=== PATIENT | female | born 1980 | race Caucasian/White ===

== ENCOUNTER → 2018-09-19 | Day surgery (SDC) | payer OTHER ==
[2018-09-19] VITALS (11 sets, daily range): BP systolic 105–122; BP diastolic 63–75
[~2018-09-19] VITALS: Ht 172.7 cm; Wt 68.0 kg
[~2018-09-19] MED LIST: Bupivacaine 0.5% Inj 30 ml vial INJ ONE; Bupivacaine w/Epi 0.25% 30ml Vial INJ ONE; D5 1/2NS 1,000 ML IV SCH; Duramorph PF 10mg/10ml amp EPIDUR ONE; HYDROmorphone 1mg/ml Carpuject SUBQ PRN; Kenalog-40 1ml Vial ONE; Ketorolac 30mg Inj ONE; LR 1000ml ONE; Lidocaine 1% 10mg/ml/Epi 0.005mg/ml 30ml vial INJ ONE; Lidocaine 1% MPF 10mg/ml 5ml ONE; MULTIVITAMINS1 EA11 ORAL; Metoclopramide 10mg/2ml Inj IVP PRN; Morphine Sulfate PF 10 ML ONE; NS Irrig 4000ml IRRIG ONE; Norco 5mg/325mg tab ORAL PRN; Propofol 200mg/20ml IV ONE; Tylenol #3 tab (300mg/30mg) ORAL PRN; ceFAZolin 1gm IVPB IVPB ONE; celeBREX 200mg Cap **SURGERY PATIENTS ONLY ORAL ONE; fentaNYL 100 mcg/2 mL IV PRN; oxyCONTIN 20mg tab ORAL ONE
--- NOTE | 2018-09-19 06:59 | Pre-Procedure Note/Attestation ---
Pre-Procedure Note/Attestation Complete Prior to Procedure Planned Procedure: right Procedure Narrative: knee arthroscopy, possible synovectomy, possible chondroplasty, possible menisectomy Indications for Procedure Pre-Operative Diagnosis: right knee internal derangement Attestation I attest that I discussed the nature of the procedure; its benefits; risks and complications; and alternatives (and the risks and benefits of such alternatives ), prior to the procedure, with the patient (or the patient's legal client support representative). I attest that, if there was a reasonable possibility of needing a blood transfusion, the patient (or the patient's legal client support representative) was given the [facility] standardized written summary, pursuant to the [place] Blood Safety Act ([place] Health and Safety Code # 1645, as amended). I attest that I re-evaluated the patient just prior to the surgery and that there has been no change in the patient's H&P, except as documented below: Jim Omalley MD Sep 19, 2018 06:59
--- NOTE | 2018-09-19 07:00 | Operative Note - PDOC ---
Operative Note Operative Note Pre-op Diagnosis: right knee internal derangement Procedure: see op report Operative Findings: consistent w/pre-op dx studies Specimen: none Complications: none Estimated Blood Loss: none Implant(s) used?: No Jim Omalley MD Sep 19, 2018 07:00
--- NOTE | 2018-09-19 07:03 | Operative Note - PDOC ---
Operative Note Operative Note Pre-op Diagnosis: right knee internal derangement Procedure: see op report Post-op Diagnosis: same as pre-op plus Operative Findings: consistent w/pre-op dx studies Anesthesia: MAC Specimen: none Complications: none Estimated Blood Loss: none Implant(s) used?: Jim Guzmán MD Sep 19, 2018 07:03
--- NOTE | 2018-09-19 07:03 | Pre-Procedure Note/Attestation ---
Pre-Procedure Note/Attestation Complete Prior to Procedure Planned Procedure: right Indications for Procedure Pre-Operative Diagnosis: right knee internal derangement Attestation I attest that I discussed the nature of the procedure; its benefits; risks and complications; and alternatives (and the risks and benefits of such alternatives ), prior to the procedure, with the patient (or the patient's legal wireless sales representative). I attest that, if there was a reasonable possibility of needing a blood transfusion, the patient (or the patient's legal wireless sales representative) was given the [facility] standardized written summary, pursuant to the [place] Blood Safety Act ([place] Health and Safety Code # 1645, as amended). I attest that I re-evaluated the patient just prior to the surgery and that there has been no change in the patient's H&P, except as documented below: Jim Omalley MD Sep 19, 2018 07:03
--- NOTE | 2018-09-19 08:09 | Immediate Post-Op Evaluation ---
Immediate Post-Op Evalulation Immediate Post-Op Evalulation Procedure: right knee arthroscopy Date of Evaluation: Sep 19, 2018 Time of Evaluation: 08:10 IV Fluids: 600 Blood Pressure Systolic: 109 Blood Pressure Diastolic: 65 Pulse Rate: 90 Respiratory Rate: 14 O2 Sat by Pulse Oximetry: 100 Temperature (Fahrenheit): 98.0 Nausea: No Vomiting: No Complications none Patient Status: awake, reacts, patent Hydration Status: adequate Drug: ancef Given Within 1 Hr of Incision: Yes Time Given: 07:10 Yisel Overton CRNA Sep 19, 2018 08:09
--- NOTE | 2018-09-19 08:11 | Anethesia Preoperative Eval ---
Anesthesia Pre-op PMH/ROS General Date of Evaluation: Sep 19, 2018 Time of Evaluation: 07:00 Anesthesiologist: marya ASA Score: ASA 1 Mallampati Score Class I : Soft palate, uvula, fauces, pillars visible Class II: Soft palate, uvula, fauces visible Class III: Soft palate, base of uvula visible Class IV: Only hard plate visible Mallampati Classification: Class II Surgeon: miguel a Diagnosis: knee pain Surgical Procedure: right knee arthroscopy Anesthesia History: none Family History: no anesthesia problems Allergies: Coded Allergies: No Known Allergies (Unverified , 09/18/18) Medications: see eMAR Patient NPO?: Yes NPO Date: Sep 18, 2018 NPO Time: 23:59 Past Medical History Cardiovascular: Denies: HTN, CAD, CO, valve dz, arrhythmia, other Pulmonary: Denies: asthma, COPD, [place], other Gastrointestinal/Genitourinary: Denies: GERD, CRI, ESRD, other Neurologic/Psychiatric: Denies: dementia, CVA, depression/anxiety, TIA, other Endocrine: Denies: DM, hypothyroidism, steroids, other HEENT: Denies: cataract (L), cataract (R), glaucoma, [place] (L), [place] (R), other Hematology/Immune: Denies: anemia, DVT, bleeding disorder, other Musculoskeletal/Integumentary: Denies: OA, RA, DJD, DDD, edema, other PSxH Narrative: appendectomy Anesthesia Pre-op Phys. Exam Physician Exam Last Vital Signs Date Time Temp Pulse Resp B/P (MAP) Pulse Ox O2 Delivery O2 Flow Rate FiO2 09/19/18 06:35 Room Air 09/19/18 06:25 98.4 90 18 115/74 100 Constitutional: NAD Neurologic: CN 2-12 intact Cardiovascular: RRR Respiratory: CTA Gastrointestinal: S/NT/ND Airway Exam Mallampati Classification 2 Mallampati Score: Class I Neck: normal TMD: 2fb ROM: full Dentures: no upper, no lower Anesthesia Pre-op A/P Labs Urine Test Test 09/19/18 05:50 Urine HCG, Qualitative Negative (NEGATIVE) Studies Pre-op Studies: EKG - sr Risk Assessment & Plan Assessment: denies changes in health Plan: general/adductor Pre-Antibiotics Drug: ancef Given Within 1 Hr of Incision: Yes Time Given: 07:10 Yisel Overton [employer] Sep 19, 2018 08:11
--- NOTE | 2018-09-19 09:34 | 48 Hour Post Anesthesia Eval ---
Post Anesthesia Evaluation Procedure: right knee arthroscopy Date of Evaluation: Sep 19, 2018 Time of Evaluation: 09:34 Blood Pressure Systolic: 113 0: 71 Pulse Rate: 94 Respiratory Rate: 14 O2 Sat by Pulse Oximetry: 98 Airway: patent Nausea: No Vomiting: No Pain Intensity: 0 Hydration Status: adequate Cardiopulmonary Status: stable Mental Status/LOC: patient returned to baseline Post-Anesthesia Complications: none Follow-up care needed: N/A Yisel Overton CRNA Sep 19, 2018 09:34
--- NOTE | 2018-09-19 16:45 | Operative Note - Dictated ---
DATE OF OPERATION: 09/19/2018 PREOPERATIVE DIAGNOSIS: Right knee internal derangement. POSTOPERATIVE DIAGNOSES: 1. Right knee grade 2 chondral damage, inferior pole of patella. 2. Hypertrophic synovial tissue and fat pad. PROCEDURE: 1. Right knee diagnostic arthroscopy. 2. Right knee medial and patellofemoral synovectomy. SURGEON: Jim Omalley M.D. ANESTHESIA: General. 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 She failed conservative treatment and elected to undergo right knee diagnostic arthroscopy. Risks, limitations, expectations, and complications of the procedure were discussed in detail. We discussed based on intraoperative findings, treatment recommendations would vary. She may still continue to have issues despite the operative intervention. Additional risks including infection, nerve or vessel damage, DVT were all discussed in detail. All questions were addressed. DESCRIPTION OF PROCEDURE: After informed consent was obtained, the patient was brought to the operating room. The patient was placed under general anesthesia. Tourniquet was applied about the right proximal thigh. Right leg was prepped and draped in sterile manner. Ancef was administered. Time-out was performed. A 0.25% Marcaine was injected in the knee, 0.25% Marcaine was injected in the portals. Esmarch was used to exsanguinate the extremity. Inferolateral stab incision was then made. Of note, there was some resistance with advancement of the trocar into the joint through the lateral gutter. Patellofemoral compartment was entered and there was fat pad as well as medial plica that was visible. Once the medial compartment was entered, a medial working portal was established. The medial meniscus was probed along with the condyle in the medial compartment. Synovectomy of the medial compartment and excision of some of the fat pad was performed to the anterior compartment extending into the intercondylar notch. The intercondylar notch was entered. The ACL was probed and found to be intact. Lateral compartment was entered and was free of any meniscal or chondral damage. Camera was repositioned in the patellofemoral compartment and the medial plica was further removed. Once that was done, the instruments were removed. Portal sites were closed using nylon sutures. The patient was awoken and taken to recovery room with stable vital signs. ESTIMATED BLOOD LOSS: None. COMPLICATIONS: None. SPECIMENS: None. IMPLANTS: None. Jim Omalley M.D. DR: Nick JOB#: [id number] CC:
== END | disposition home or self-care (01) ==
LOC: SUR 05:37
DX: M67.261 Synovial hypertrophy, not elsewhere classified, right lower leg (principal); M24.10 Other articular cartilage disorders, unspecified site; Z97.5 Presence of (intrauterine) contraceptive device; X58.XXXA Exposure to other specified factors, initial encounter; Y92.9 Unspecified place or not applicable
CPT/HCPCS: 29876; 81025; J0690; J1885; J2274; J2405; J2704; J2765; J3010; J3301; J3490; 94003; 94150